=== PATIENT | male | born 1965 | race Caucasian/White ===

== ENCOUNTER 2017-07-23 21:36 | Emergency (ER) | payer BC, OTHER ==
[2017-07-23] MEDS ORDERED: Metoclopramide 10 MG/2 ML SDV IVPUSH ONE (22:09)
[2017-07-23] MEDS ORDERED: HYDROmorphone 0.5 MG/0.5 ML SYRINGE IVPUSH ONE (22:09)
--- NOTE | 2017-07-23 22:09 | EDM.PDOC ---
ED HPI GENERAL MEDICAL PROBLEM - General Chief Complaint: Gastrointestinal Problem Stated Complaint: ABDOMINAL PAIN Time Seen by Provider: 07/23/17 22:02 Source of Information: Reports: Patient History Limitations: Reports: No Limitations - History of Present Illness INITIAL COMMENTS - FREE TEXT/NARRATIVE: 52-year-old male presents the ED with a combination of Toprol. He states within a half hour eating Sahu's soup he developed diffuse periumbilical abdominal pain which she described as burning. Pain is constant with a mild colicky component. He is not passing any flatus per rectum and he feels mildly distended. Associated nausea and he has not vomited. He suddenly developed a severe headache bandlike across his forehead but centered more between the eyebrows. It is constant and throbbing in the light hurts his eyes. He does have a history of migraine headaches. States this feels similar to weighs expression the past. No previous abdominal surgery. Pain started about half hour after having the soup.ie about 1830 hrs. Onset: Today Onset Date: 07/23/17 Onset Time: 18:30 Duration: Hour(s): Location: Reports: Head ( Associated feeling of abdominal distention. severe headache centered mostly in the frontal cortex centrally throbbing pounding and associated photophobia with nausea. ), Abdomen (Diffuse periumbilical constant abdominal pain which he described as burning in intensity with some mild colicky component.) Quality: Reports: Other (Headache is throbbing and pounding.) Severity: Moderate Improves with: Reports: None Worsens with: Reports: None Context: Denies: Activity, Exercise, Lifting, Sick Contact, Trauma, Other Associated Symptoms: Reports: Headaches, Loss of Appetite (Has a history of migraine headaches), Nausea/Vomiting, Weakness (Nausea with no vomiting). 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 [No Known Home Meds] 07/23/17 [History] Past Medical History - Past Health History Medical/Surgical History: Denies Medical/Surgical History Neurological History: Reports: Migraines Social & Family History - Family History Family Medical History: Noncontributory - Tobacco Use Smoking Status *Q: Never Smoker - Caffeine Use Caffeine Use: Reports: Coffee - Recreational Drug Use Recreational Drug Use: No - Living Situation & Occupation Living situation: Reports: Occupation: Employed ED ROS GENERAL - Review of Systems Review Of Systems: See Below Constitutional: Reports: Decreased Appetite. Denies: Fever, Chills, Malaise, Weakness, Fatigue, Weight Loss HEENT: Reports: Other. Denies: Vision Change Respiratory: Reports: No Symptoms (Currently very photosensitive to light.) Cardiovascular: Reports: No Symptoms Endocrine: Reports: No Symptoms GI/Abdominal: Reports: Abdominal Pain (Diffuse periumbilical abdominal pain described as burning. Pain is constant with a), Nausea. Denies: Constipation ( mild colicky component.), Diarrhea, Vomiting (Without any emesis.) : Reports: No Symptoms Musculoskeletal: Reports: No Symptoms Skin: Reports: No Symptoms Neurological: Reports: Headache (Severe bandlike headache across his frontal cortex centered in the middle of his forehead. Constant pounding throbbing headache ). Denies: Paresthesia (similar to migraines he is expressing the past.), Pre-Existing Deficit, Seizure, Syncope, Tingling, Tremors, Trouble Speaking, Difficulty Walking, Weakness Psychiatric: Reports: No Symptoms Hematologic/Lymphatic: Reports: No Symptoms Immunologic: Reports: No Symptoms ED EXAM, GI/ABD - Physical Exam Exam: See Below Exam Limited By: No Limitations General Appearance: Alert, WD/WN, Moderate Distress (In obvious discomfort prefers to lie still with his eyes closed.) Eyes: Bilateral: Normal Appearance (No jaundice.), Proptosis (Problem with no gaze palsy.) Throat/Mouth: Normal Inspection, Normal Lips, Normal Teeth Head: Atraumatic, Normocephalic Neck: Normal Inspection, Supple, Non-Tender, Full Range of Motion. No: Lymphadenopathy (L), Lymphadenopathy (R) Respiratory/Chest: No Respiratory Distress, Lungs Clear, Normal Breath Sounds, No Accessory Muscle Use, Chest Non-Tender Cardiovascular: Normal Peripheral Pulses, Regular Rate, Rhythm, No Edema, No Gallop, No Murmur, No Rub GI/Abdominal Exam: Soft, Non-Tender, No Organomegaly, Distended (Subjectively feels distended but is not tympanitic to percussion.), Abnormal Bowel Sounds ( Hyperactive bowel sounds in all 4 quadrants.), Other (Soft patient without organomegaly or masses noted. Note he has a band of vitiligo across his lower abdomen where his waistband of his under shorts would go across.). No: Guarding , Rigid, Rebound, Tender Back Exam: Normal Inspection, Full Range of Motion. No: CVA Tenderness (L), CVA Tenderness (R) Extremities: Normal Inspection, Normal Range of Motion, Non-Tender, No Pedal Edema Neurological: Alert, Oriented, CN II-XII Intact, Normal Cognition, Normal Gait Psychiatric: Normal Affect, Normal Mood Skin Exam: Warm, Dry, Intact, Normal Color, No Rash Course - Vital Signs Last Recorded V/S: Last Vital Signs Temp 35.4 C 07/23/17 21:43 Pulse 61 07/23/17 21:43 Resp 24 H 07/23/17 21:43 BP Pulse Ox 10 L 07/23/17 21:43 - Orders/Labs/Meds Orders: Active Orders 24 hr Category Date Time Status Abdomen 1V Flat [CR] Stat Exams 07/23/17 22:10 Taken Dextrose 5%-0.9% NaCl [Dextrose 5%-Normal Saline] 1,000 Med 07/23/17 22:15 Active ml IV ASDIRECTED Medication Orders Dextrose/Sodium Chloride (Dextrose 5%-Normal Saline) 1,000 mls @ 999 mls/hr IV ASDIRECTED CHANTELL Last Admin: 07/23/17 22:18 Dose: 999 mls/hr Labs: Laboratory Tests 07/23/17 07/23/17 Range/Units 21:00 21:00 WBC 11.25 H (4.23-9.07) K/mm3 RBC 5.56 (4.63-6.08) M/mm3 Hgb 16.4 (13.7-17.5) gm/L Hct 46.6 (40.1-51.0) % MCV 83.8 (79.0-92.2) fl MCH 29.5 (25.7-32.2) pg MCHC 35.2 (32.2-35.5) g/dl RDW Std Deviation 38.3 (35.1-43.9) fL Plt Count 250 (163-337) K/mm3 MPV 9.8 (9.4-12.3) fl Neutrophils % (Manual) 90 H (40-60) % Band Neutrophils % 0 (0-10) % Lymphocytes % (Manual) 8 L (20-40) % Atypical Lymphs % 0 % Monocytes % (Manual) 2 (2-10) % Eosinophils % (Manual) 0 L (0.8-7.0) % Basophils % (Manual) 0 L (0.2-1.2) Platelet Estimate Adequate RBC Morph Comment Normal Sodium 139 (136-145) mEq/L Potassium 3.5 (3.5-5.1) mEq/L Chloride 101 (98-107) mEq/L Carbon Dioxide 24 (21-32) mEq/L Anion Gap 17.5 H (5-15) BUN 12 (7-18) mg/dL Creatinine 1.3 (0.7-1.3) mg/dL Est Cr Clr Drug Dosing 67.07 mL/min Estimated GFR (MDRD) 58 (>60) mL/min BUN/Creatinine Ratio 9.2 L (14-18) Glucose 146 H (74-106) mg/dL Calcium 9.2 (8.5-10.1) mg/dL Total Bilirubin 1.1 H (0.2-1.0) mg/dL AST 28 (15-37) U/L ALT 53 (16-63) U/L Alkaline Phosphatase 56 (46-116) U/L C-Reactive Protein < 0.2 (<1.0) mg/dL Total Protein 7.8 (6.4-8.2) g/dl Albumin 4.2 (3.4-5.0) g/dl Globulin 3.6 gm/dL Albumin/Globulin Ratio 1.2 (1-2) Amylase 63 (25-115) U/L Meds: Medications Generic Name Dose Route Start Last Admin Trade Name Freq PRN Reason Stop Dose Admin Dextrose/Sodium Chloride 1,000 mls @ 999 mls/hr 07/23/17 22:15 07/23/17 22:18 Dextrose 5%-Normal Saline IV 999 mls/hr ASDIRECTED CHANTELL Administration Discontinued Medications Generic Name Dose Route Start Last Admin Trade Name Freq PRN Reason Stop Dose Admin Hydromorphone HCl 1 mg 07/23/17 22:09 07/23/17 22:20 Dilaudid IVPUSH 07/23/17 22:10 1 mg ONETIME ONE Administration Metoclopramide HCl 10 mg 07/23/17 22:09 07/23/17 22:19 Reglan IVPUSH 07/23/17 22:10 10 mg ONETIME ONE Administration - Radiology Interpretation Free Text/Narrative:: 52-year-old male presents to the ED with acute onset of diffuse abdominal pain initially upper and now settled mostly periumbilical. He described as burning and constant with a mild colicky component. Does like he wants to vomit but has not been able to do so. Also does not feel like he is passing any flatus per rectum. Feels distended. No previous abdominal surgeries. He also developed a's severe splitting headache central frontal scalp which is throbbing and pounding. Associated with nausea. Also she with photophobia. Possibility STD exposure in the Sahu's soup as a precipitant of migraine which caused associated abdominal pain. Plan IV D5 normal saline at 999 mils per hour. Will give Reglan 10 mg IV with Dilaudid 0.5 mg IV for headache relief as well as abdominal pain relief. Routine labs including a serum aldolase and CRP will be obtained. One view of the abdomen to be obtained as well. - Re-Assessments/Exams Free Text/Narrative Re-Assessment/Exam: 07/23/17 22:54 KUB is essentially normal. There are few nonspecific dilated loops of small bowel down the right lower quadrant of the abdomen with increased stool in the cecum. Is no true signs of bowel obstruction. 07/23/17 23:08 Only chemistry is back at this time. Sodium is 139 with potassium of 3.5. Chloride is 11 with a bicarbonate 24. And a gap is mildly elevated at 17.5. BUN is 12 and a creatinine of 1.3. EGFR is greater than 58. BUN creatinine ratio is 9.2. Glucose 146. Bilirubin 1.1. Liver function otherwise normal amylase is 63 i.e. normal. White count reveals a total WBC of 11.25 with 90% neutrophils and no bands hemoglobin is 16.4 with a hematocrit of 46.6. Platelet count is 250,000. Patient feels much improved and will be discharged to home to bed. Departure - Departure Time of Disposition: 23:17 Disposition: Home, Self-Care 01 Condition: Fair Clinical Impression: Migraine headache without aura Qualifiers: Status migrainosus presence: without status migrainosus Intractability: not intractable Qualified Code(s): G43.009 - Migraine without aura, not intractable , without status migrainosus Abdominal pain Qualifiers: Abdominal location: periumbilical Qualified Code(s): R10.33 - Periumbilical pain - Discharge Information Referrals: Saleem Anderson MD [Primary Care Provider] - Forms: ED Department Discharge Additional Instructions: Evaluation the emergency room tonight in regards to development of upper and then periumbilical abdominal pain with increased bowel sounds on initial examination. Suggested intestinal colic or really bad cramps. X-ray of the abdomen shows some increased stool in the right hemicolon and a few nonspecific dilated loops of small bowel in the right lower quadrant but no other signs of chicken etc. He also developed a severe frontal headache which I would call migraine due to is associated photophobia and nausea. It may or may not be related to MSG found in Sahu's soups. They are known to often have very high concentrations of monosodium glutamate which can precipitate headaches and susceptible individuals. Migraines are often associated with upper abdominal pain as well. Often associate with paralysis of the stomach and pain. At any rate lab work proved to be essentially normal. You're treated with intravenous fluids while in the ED and given Dilaudid 1 mg and Reglan 10 mg IV for pain relief. Much improved at the time of discharge and repeat abdominal examination did not show any such evidence of peritonitis or appendicitis. Home to bed and sleep. Certainly return to the emergency room in the next 12 hours of abdominal pain is not markedly improved or returns or seems to settle in the right lower quadrant of the abdomen which would suggest developing appendicitis. - My Orders Last 24 Hours: My Active Orders 07/23/17 22:10 Abdomen 1V Flat [CR] Stat 07/23/17 22:15 Dextrose 5%-0.9% NaCl [Dextrose 5%-Normal Saline] 1,000 ml IV ASDIRECTED - Assessment/Plan Last 24 Hours: My Active Orders 07/23/17 22:10 Abdomen 1V Flat [CR] Stat 07/23/17 22:15 Dextrose 5%-0.9% NaCl [Dextrose 5%-Normal Saline] 1,000 ml IV ASDIRECTED
[2017-07-23] MEDS ORDERED: Dextrose 5%-0.9% NaCl 1,000 ML IV SCH (22:15)
--- NOTE | 2017-07-24 07:26 | CR ---
Abdomen: Supine view of the abdomen was obtained. Comparison: No prior study. Bowel gas pattern appears normal. Minimal degenerative change is noted within the spine. No abnormal calcifications or soft tissue abnormality is appreciated. Impression: 1. Incidental findings. Diagnostic code #2
== END 2017-07-23 23:25 | disposition home or self-care (01) ==
LOC: JD.ED 21:36
DX: G43.009 Migraine without aura, not intractable, without status migrainosus (principal); R10.33 Periumbilical pain
CPT/HCPCS: 36415; 74018; 80053; 82150; 85025; 86140; 96361; 96374; 96375; 99284; J1170; J2765; J7042

== ENCOUNTER 2017-12-05 01:17 | Observation (INO) | payer OTHER ==
[2017-12-05] MEDS ORDERED: Alum Hydrox/Mag Hydrox/Simeth 30 ML, Lidocaine 2% 15 ML PO ONE ×2 (01:43)
[2017-12-05] MEDS ORDERED: Sodium Chloride 0.9% 1,000 ML IV SCH (01:45)
[2017-12-05] MEDS ORDERED: Ketorolac 30 MG/ML SDV IVPUSH ONE (02:10)
[2017-12-05] MEDS ORDERED: Dicyclomine 20 MG/2 ML SDV IM ONE (02:10)
[2017-12-05] MEDS ORDERED: Ondansetron 4 MG/2 ML SDV IVPUSH ONE (02:11)
[2017-12-05] MEDS ORDERED: Iopamidol 755 Mg/ML 100 ML Bottle IVPUSH ONE (03:09)
[2017-12-05] MEDS ORDERED: Diatrizoate Meglumine/Diatrizoate Sodium 37% 120 ML Bottle PO ONE (03:09)
--- NOTE | 2017-12-05 04:29 | EDM.PDOC ---
ED HPI GENERAL MEDICAL PROBLEM - General Chief Complaint: Abdominal Pain Stated Complaint: ABDOMINAL PAIN Time Seen by Provider: 12/05/17 01:39 Source of Information: Reports: Patient, Family History Limitations: Reports: No Limitations - History of Present Illness INITIAL COMMENTS - FREE TEXT/NARRATIVE: Patient is a 52-year-old male presents emergency Department epigastric and upper abdominal pain. He describes the pain as a severe burning type pain. He denies any particular trigger. Patient a bowel movement prior to arrival but it did not change the characteristics of his pain. He describes the pain as intermittent +8 out of 10. Patient denies any previous history of gallbladder disease or abdominal surgeries. Patient reports nausea with dry heaves and epigastric pain upper abdominal pain, diaphoresis, patient denies any fever chills constipation or diarrhea no new rashes itches or joint pains. Onset: Sudden Duration: Hour(s): (4), Colic, Getting Worse, Intermittent Location: Reports: Abdomen Quality: Reports: Burning Severity: Severe Improves with: Reports: None Worsens with: Reports: None Context: Reports: Other (see hpi) Associated Symptoms: Reports: Chest Pain, Diaphoresis, Nausea/Vomiting, Shortness of Breath. Denies: Fever/Chills Epigastric Pain Score (Numeric/FACES): 10 - Related Data Allergies Allergy/AdvReac Type Severity Reaction Status Date / Time No Known Allergies Allergy Verified 07/23/17 21:43 Home Meds: Home Meds . [No Known Home Meds] 07/23/17 [History] Past Medical History - Past Health History Medical/Surgical History: Denies Medical/Surgical History Cardiovascular History: Reports: Hypertension Neurological History: Reports: Migraines Social & Family History - Family History Family Medical History: Noncontributory - Tobacco Use Smoking Status *Q: Never Smoker - Caffeine Use Caffeine Use: Reports: Coffee - Living Situation & Occupation Living situation: Reports: Occupation: Employed ED ROS GENERAL - Review of Systems Review Of Systems: See Below Constitutional: Reports: No Symptoms HEENT: Reports: No Symptoms Respiratory: Reports: Shortness of Breath Cardiovascular: Reports: Chest Pain Endocrine: Reports: No Symptoms GI/Abdominal: Reports: Abdominal Pain, Nausea, Vomiting (Dry heaves). Denies: Black Stool, Bloody Stool, Constipation, Diarrhea : Reports: No Symptoms Musculoskeletal: Reports: No Symptoms Skin: Reports: No Symptoms Neurological: Reports: No Symptoms Psychiatric: Reports: No Symptoms Hematologic/Lymphatic: Reports: No Symptoms Immunologic: Reports: No Symptoms ED EXAM, GI/ABD - Physical Exam Exam: See Below Exam Limited By: No Limitations General Appearance: Alert, WD/WN, Moderate Distress Eyes: Bilateral: Normal Appearance, EOMI Ears: Normal External Exam, Normal Canal, Hearing Grossly Normal, Normal TMs Nose: Normal Inspection, Normal Mucosa, No Blood Throat/Mouth: Normal Inspection, Normal Lips, Normal Oropharynx, Normal Voice, No Airway Compromise Head: Atraumatic, Normocephalic Neck: Normal Inspection, Supple, Non-Tender, Full Range of Motion Respiratory/Chest: No Respiratory Distress, Lungs Clear, Normal Breath Sounds, No Accessory Muscle Use, Chest Non-Tender Cardiovascular: Normal Peripheral Pulses, Regular Rate, Rhythm, No Edema, No JVD , No Murmur GI/Abdominal Exam: Normal Bowel Sounds, Soft, No Organomegaly, No Distention, No Abnormal Bruit, No Mass, Pelvis Stable, Tender, Abnormal Bowel Sounds ( Decreased bowel sounds). No: Distended, Guarding, Rigid, Rebound Back Exam: Normal Inspection, Full Range of Motion. No: CVA Tenderness (L), CVA Tenderness (R) Neurological: Alert, Oriented, CN II-XII Intact, Normal Cognition Psychiatric: Normal Affect, Normal Mood Skin Exam: Warm, Dry, Intact, Normal Color, No Rash Lymphatic: No Adenopathy Course - Vital Signs Last Recorded V/S: Last Vital Signs Temp 98.5 F 12/05/17 01:26 Pulse 98 12/05/17 01:26 Resp 18 12/05/17 01:26 BP 175/97 H 12/05/17 01:26 Pulse Ox 100 12/05/17 01:26 - Orders/Labs/Meds Orders: Active Orders 24 hr Category Date Time Status EKG Documentation Completion [RC] ASDIRECTED Care 12/05/17 01:53 Active Abdomen Ltd [US] Stat Exams 12/05/17 03:35 Taken Abdomen Pelvis w Cont [CT] Stat Exams 12/05/17 01:41 Taken Chest 1V Frontal [CR] Stat Exams 12/05/17 01:40 Taken Sodium Chloride 0.9% [Normal Saline] 1,000 ml Med 12/05/17 01:45 Active IV ASDIRECTED EKG 12 Lead [EK] Stat Ther 12/05/17 01:53 Ordered Medication Orders Sodium Chloride (Normal Saline) 1,000 mls @ 150 mls/hr IV ASDIRECTED CHANTELL Last Admin: 12/05/17 01:49 Dose: 150 mls/hr Labs: Laboratory Tests 12/05/17 12/05/17 12/05/17 Range/Units 01:36 01:36 01:36 WBC 10.45 H (4.23-9.07) K/mm3 RBC 5.20 (4.63-6.08) M/mm3 Hgb 15.7 (13.7-17.5) gm/L Hct 44.8 (40.1-51.0) % MCV 86.2 (79.0-92.2) fl MCH 30.2 (25.7-32.2) pg MCHC 35.0 (32.2-35.5) g/dl RDW Std Deviation 40.1 (35.1-43.9) fL Plt Count 211 (163-337) K/mm3 MPV 9.9 (9.4-12.3) fl Neut % (Auto) 76.8 H (34.0-67.9) % Lymph % (Auto) 13.5 L (21.8-53.1) % [place] % (Auto) 7.2 (5.3-12.2) % Eos % (Auto) 1.8 (0.8-7.0) Baso % (Auto) 0.4 (0.1-1.2) % Neut # (Auto) 8.03 H (1.78-5.38) K/mm3 Lymph # (Auto) 1.41 (1.32-3.57) K/mm3 [place] # (Auto) 0.75 (0.30-0.82) K/mm3 Eos # (Auto) 0.19 (0.04-0.54) K/mm3 Baso # (Auto) 0.04 (0.01-0.08) K/mm3 Sodium 138 (136-145) mEq/L Potassium 3.8 (3.5-5.1) mEq/L Chloride 104 (98-107) mEq/L Carbon Dioxide 24 (21-32) mEq/L Anion Gap 13.8 (5-15) BUN 21 H (7-18) mg/dL Creatinine 1.4 H (0.7-1.3) mg/dL Est Cr Clr Drug Dosing 62.28 mL/min Estimated GFR (MDRD) 53 (>60) mL/min BUN/Creatinine Ratio 15.0 (14-18) Glucose 142 H (74-106) mg/dL Lactic Acid 2.3 H (0.4-2.0) mmol/L Calcium 8.8 (8.5-10.1) mg/dL Total Bilirubin 1.0 (0.2-1.0) mg/dL AST 18 (15-37) U/L ALT 43 (16-63) U/L Alkaline Phosphatase 52 (46-116) U/L Troponin I < 0.017 (0.00-0.056) ng/mL Total Protein 7.5 (6.4-8.2) g/dl Albumin 3.9 (3.4-5.0) g/dl Globulin 3.6 gm/dL Albumin/Globulin Ratio 1.1 (1-2) Lipase (73-393) U/L 12/05/17 Range/Units 01:36 WBC (4.23-9.07) K/mm3 RBC (4.63-6.08) M/mm3 Hgb (13.7-17.5) gm/L Hct (40.1-51.0) % MCV (79.0-92.2) fl MCH (25.7-32.2) pg MCHC (32.2-35.5) g/dl RDW Std Deviation (35.1-43.9) fL Plt Count (163-337) K/mm3 MPV (9.4-12.3) fl Neut % (Auto) (34.0-67.9) % Lymph % (Auto) (21.8-53.1) % [place] % (Auto) (5.3-12.2) % Eos % (Auto) (0.8-7.0) Baso % (Auto) (0.1-1.2) % Neut # (Auto) (1.78-5.38) K/mm3 Lymph # (Auto) (1.32-3.57) K/mm3 [place] # (Auto) (0.30-0.82) K/mm3 Eos # (Auto) (0.04-0.54) K/mm3 Baso # (Auto) (0.01-0.08) K/mm3 Sodium (136-145) mEq/L Potassium (3.5-5.1) mEq/L Chloride (98-107) mEq/L Carbon Dioxide (21-32) mEq/L Anion Gap (5-15) BUN (7-18) mg/dL Creatinine (0.7-1.3) mg/dL Est Cr Clr Drug Dosing mL/min Estimated GFR (MDRD) (>60) mL/min BUN/Creatinine Ratio (14-18) Glucose (74-106) mg/dL Lactic Acid (0.4-2.0) mmol/L Calcium (8.5-10.1) mg/dL Total Bilirubin (0.2-1.0) mg/dL AST (15-37) U/L ALT (16-63) U/L Alkaline Phosphatase (46-116) U/L Troponin I (0.00-0.056) ng/mL Total Protein (6.4-8.2) g/dl Albumin (3.4-5.0) g/dl Globulin gm/dL Albumin/Globulin Ratio (1-2) Lipase 120 (73-393) U/L Meds: Medications Generic Name Dose Route Start Last Admin Trade Name Freq PRN Reason Stop Dose Admin Sodium Chloride 1,000 mls @ 150 mls/hr 12/05/17 01:45 12/05/17 01:49 Normal Saline IV 150 mls/hr ASDIRECTED CHANTELL Administration Discontinued Medications Generic Name Dose Route Start Last Admin Trade Name Freq PRN Reason Stop Dose Admin Al Hydroxide/Mg Hydroxide 30 0 ml 12/05/17 01:43 12/05/17 01:50 ml/ Lidocaine HCl 15 ml PO 12/05/17 01:44 45 ml ONETIME ONE Administration Diatrizoate Meglum/Diatrizoate Sod 90 ml 12/05/17 03:09 12/05/17 03:17 Gastrografin 37% PO 12/05/17 03:10 90 ml ONETIME ONE Administration Dicyclomine HCl 20 mg 12/05/17 02:10 12/05/17 02:19 Bentyl IM 12/05/17 02:11 20 mg ONETIME ONE Administration Iopamidol 100 ml 12/05/17 03:09 07/18/18 03:17 [id number] (76%) IVPUSH 12/05/17 03:10 100 ml ONETIME ONE Administration Ketorolac Tromethamine 30 mg 12/05/17 02:10 12/05/17 02:18 Toradol IVPUSH 12/05/17 02:11 30 mg ONETIME ONE Administration Ondansetron HCl 4 mg 12/05/17 02:11 12/05/17 02:15 Zofran IVPUSH 12/05/17 02:12 4 mg ONETIME ONE Administration - Radiology Interpretation Free Text/Narrative:: Patient had a limited ultrasound of the abdomen right upper quadrant epigastric pain the impression is cholelithiasis. No ultrasound evidence of acute cholecystitis. Gallbladder wall upper limits of normal in thickness. Patient had a CT of the abdomen and pelvis and the impression was by the red: Nonspecific gallbladder wall thickening this could be better evaluated by an ultrasound. Patient had a EKG at 1:36 AM Rate 68 sinus rhythm NV interval 153 QTC 430 Lead 3 has inverted T waves otherwise normal EKG - Re-Assessments/Exams Free Text/Narrative Re-Assessment/Exam: 12/05/17 04:39 Care of this patient was discussed in great detail with the surgeon Dr. Lois WU. Patient had a slight elevation in his white blood cell count of 10.45 elevation lactic acid 2.3 but a negative ultrasound but a positive gallbladder wall thickening on his CT. Patient has no other medical problems. Dr. Chao accepts the patient for observation. She will be in to see the patient in to see patient around 8 AM. Patient is still having intermittent abdominal pain but he states it is somewhat tolerable. We'll continue to monitor. Departure - Departure Time of Disposition: 04:20 Disposition: DC/Tfer to Critical Access 66 Condition: Good Clinical Impression: Cholelithiasis NOS Qualifiers: Cholelithiasis location: gallbladder Cholecystitis presence: without cholecystitis Biliary obstruction: without biliary obstruction Qualified Code(s) : K80.20 - Calculus of gallbladder without cholecystitis without obstruction - Discharge Information *PRESCRIPTION DRUG MONITORING PROGRAM REVIEWED*: Not Applicable *COPY OF PRESCRIPTION DRUG MONITORING REPORT IN PATIENT YOLANDA: Not Applicable Instructions: Cholelithiasis Referrals: PCP,Not In Area [Primary Care Provider] - Forms: ED Department Discharge - My Orders Last 24 Hours: My Active Orders 12/05/17 01:40 Chest 1V Frontal [CR] Stat 12/05/17 01:41 Abdomen Pelvis w Cont [CT] Stat 12/05/17 01:45 Sodium Chloride 0.9% [Normal Saline] 1,000 ml IV ASDIRECTED 12/05/17 01:53 EKG Documentation Completion [RC] ASDIRECTED EKG 12 Lead [EK] Stat 12/05/17 03:35 Abdomen Ltd [US] Stat - Assessment/Plan Last 24 Hours: My Active Orders 12/05/17 01:40 Chest 1V Frontal [CR] Stat 12/05/17 01:41 Abdomen Pelvis w Cont [CT] Stat 12/05/17 01:45 Sodium Chloride 0.9% [Normal Saline] 1,000 ml IV ASDIRECTED 12/05/17 01:53 EKG Documentation Completion [RC] ASDIRECTED EKG 12 Lead [EK] Stat 12/05/17 03:35 Abdomen Ltd [US] Stat
--- NOTE | 2017-12-05 10:14 | CT ---
CT abdomen and pelvis Technique: Multiple axial sections were obtained from above the dome of the diaphragm inferiorly through the pubic symphysis. Intravenous and oral contrast was utilized. Delayed images were also obtained through the bladder. Comparison: No prior abdominal imaging is available. Findings: Slight dependent atelectasis is seen posteriorly within both lung bases which is incidental. Liver shows no focal parenchymal abnormality. Gallbladder contains no calcified gallstones. Spleen appears within normal limits. Adrenal glands show no nodule. Several small cortical cysts are seen within both kidneys. Parapelvic cysts are noted within the left kidney. No discrete solid abnormality is seen within the right or left kidneys. Pancreas is within normal limits. Aorta shows no aneurysmal dilatation. No retroperitoneal adenopathy is seen. Appendix is seen which is normal. No pelvic mass or adenopathy is seen. Delayed images show contrast within the distal ureters and within the bladder. Incidental calcifications are noted within a mildly enlarged prostate gland. Minimal diverticuli seen within the descending and sigmoid colon without inflammatory change of diverticulitis. Bone window settings were reviewed which show disc space narrowing at L5-S1 with vacuum phenomena. 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 Other scattered degenerative endplate spurring is noted within the spine. Impression: 1. Incidental findings. Nothing acute is seen on CT study of the abdomen and pelvis. Diagnostic code #2 I agree with preliminary report issued by [facility] ([facility] report finalized on 12/05/17, 4:25 AM Central Time)
--- NOTE | 2017-12-05 10:14 | CR ---
Chest: Portable view of the chest was obtained. Comparison: Prior chest x-ray of 08/22/12. Heart size is normal. Tortuous thoracic aorta is seen. Lungs are clear without acute parenchymal change. Bony structures are grossly intact. Impression: 1. Nothing acute is seen on portable chest x-ray. Diagnostic code #1
--- NOTE | 2017-12-05 10:14 | US ---
Limited abdominal ultrasound: Multiple real-time images of the upper right abdomen were obtained. Comparison: Prior CT exam performed earlier on the same day (3:03 AM). Visualized portions of liver show no discrete abnormality. Gallbladder contains several gallstones but no gallbladder wall thickening is seen. CHD and CBD are obscured from bowel gas. No indirect evidence of biliary duct dilatation is seen. Right kidney shows no hydronephrosis or mass. Right kidney has a length of 11.6 cm. Pancreas is mostly obscured by bowel gas. Portal vein shows normal hepatopedal flow. Impression: 1. No gallbladder wall thickening is seen. Several gallstones are noted. 2. Nonvisualized CHD and CBD but no indirect evidence of biliary duct dilatation is seen. 3. No additional abnormality is seen on somewhat limited abdominal ultrasound. Diagnostic code #3 I agree with preliminary report issued by [employer] [facility] ([facility] report finalized on 12/05/17, 5:14 AM Central Time)
--- NOTE | 2017-12-05 13:02 | HP ---
DATE OF ADMISSION: 12/05/2017 CHIEF COMPLAINT: Abdominal pain. BRIEF HISTORY: Mr. Ilir Shoemaker is a very pleasant 52-year-old male who was seen in the emergency department in the early hours. He is otherwise a very healthy male and he had dinner last night at 6 o'clock, which he had no problems. At 09:15 to 09:30 p.m., he started having some abdominal pain. He describes it as epigastric and going to the right and the left with radiation more to the left shoulder. He stated he had some nausea with this and felt really bloated and distended and even any taking a deep breath would make severe, he was short of breath. He started writhing in this pain and subsequently had to be seen here in the emergency department. He did have a bowel movement during this and he said that did not help and he also tried to take some Coca-Cola and that did not help. Prior to this, he has no history of food intolerances. He has no history of any abdominal pain on a chronic basis, not taking TUMS or Rolaids. Of note, in July, he had a similar episode for which he was evaluated. At that point, there was a concern he had acute appendicitis and very similar to this pain, the pain completely went away with no residual. He has had no weight loss or gain. He has no history of night sweats. As stated above, he has no history of food intolerances. This is confirmed by the pain that was intermittent and colicky and then completely went away with just some IV pain medicines gone and he says, "As soon as I kind a relax," he says, "it goes away." During this hospitalization, the patient did have an EKG, which was really nonspecific. He had a WBC, was a 10,000. H and H were 15 and 47. His platelet count was 211. He had some chemistries, which were normal. His lactic acid was 2.3, which is just mildly elevated, but interestingly enough, his troponin was normal and his bilirubin and all his liver functions were normal. Over the course of his ED, he had a CT scan of his abdomen and pelvis, which said "nonspecific gallbladder thickening," but again nothing specific in the ultrasound, there was normal thickness with no signs of acute cholecystitis. Here the patient is totally pain-free and hungry. In going back, his UA was also negative. In looking back, his previous ED evaluation was done in July of this time and at that point, he had a KUB which was just benign in appearance. PAST MEDICAL HISTORY: Allergies none. Current medications none. PAST SURGICAL HISTORY: He had back surgery in 2003. SOCIAL HISTORY: Smoking negative. Alcohol very rare. His children are alive and well. He has 7 brothers and sisters, alive and well. Mother and father are both , one was of some cardiac disease. 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 REVIEW OF SYSTEMS: No history of seizures or strokes. No blurred or double vision. No difficulty swallowing. No history of other shortness of breath or cough. No history of chest tightness or palpitations. GI see HPI. No history of hematuria or dysuria. No history of difficulty in his bowel habits. No joint pain or tenderness. No ankle swelling or edema. PHYSICAL EXAMINATION: NEUROLOGIC: GCS is 15. HEENT: Pupils are equal. Sclerae are white. NECK: Without masses. LUNGS: Clear. HEART: Rhythm is regular. ABDOMEN: Totally soft, nontender. No guarding. No rebound. EXTREMITIES: Ankles are free of edema. LABORATORY DATA: Have been reviewed as I stated above, as well as a CT scan. IMPRESSION/PLAN: It is interesting to know that when I review the CT scan, there does appear to be that he has a septate in his gallbladder itself and even though the ultrasound does not show, I am waiting for the official report on the ultrasound because to see if they discuss this. While the verbal report says no signs of really acute problems. My suspicion is that this is biliary colic, in view of the nature of the severity of it and perhaps there is a tiny stone or he could even have like a volvulus of the gallbladder, which is a little odd, but certainly, in fact that in between these episodes, he has absolutely no pain and there is no relationship to food. I suspect that this possibly could be the cause. I explained to the patient that this is removing his gallbladder, I would only say about 98%, what I feel comfortable stating that his pain would go away just because this is really a straightforward biliary colic history and physical. So what I have done is I have provided him a card and we are going to have him come back and see me in a month, or if the symptoms come back, he is going to come back and I think a reasonable approach would be to remove the gallbladder to see if this alleviates his discomfort especially because of the problems that I see with the anatomy of the gallbladder in itself. He and his feel quite good about that approach. They obviously live here and I gave them my card and indeed this would be 1 way to go ahead and see if we can improve his lifestyle. ADITI /[id number]
== END 2017-12-05 10:30 | disposition home or self-care (01) ==
LOC: JD.ED 01:17 → JD.MS 05:08
PROVIDERS: ADMIT Surgery; ATTEND Surgery
DX: R10.13 Epigastric pain (principal); I10 Essential (primary) hypertension
CPT/HCPCS: 36415; 71045; 74177; 76705; 80053; 81001; 83605; 83690; 84484; 85025; 93005; 96361; 96372; 96374; 96375; 99285; A9270; G0378; J0500; J1885; J2405; J7040; Q9963; Q9967

== ENCOUNTER 2017-12-08 21:13 | Emergency (ER) | payer OTHER ==
[2017-12-08] MEDS ORDERED: Metoclopramide 10 MG/2 ML SDV IVPUSH ONE (21:37)
[2017-12-08] MEDS ORDERED: HYDROmorphone 0.5 MG/0.5 ML SYRINGE IVPUSH ONE (21:37)
[2017-12-08] MEDS ORDERED: Hyoscyamine 0.125 MG Tab.SL SL ONE ×2 (21:38→22:38)
--- NOTE | 2017-12-08 21:39 | EDM.PDOC ---
ED HPI GENERAL MEDICAL PROBLEM - General Chief Complaint: Abdominal Pain Stated Complaint: ABDOMINAL PAIN Time Seen by Provider: 12/08/17 21:33 Source of Information: Reports: Patient History Limitations: Reports: No Limitations - History of Present Illness INITIAL COMMENTS - FREE TEXT/NARRATIVE: 52-year-old male presents to the ED with acute onset of severe epigastric right upper quadrant abdominal pain. Radiates along the right costal margin anteriorly but not into his back. Associated nausea but no vomiting as of yet. Patient was recently diagnosed with cholelithiasis by ultrasound December 04 and by history has been having recurrent intermittent bouts of upper abdominal pain. He was hospitalized 3 days ago for similar complaint but seemed to settle down quite well and therefore was discharged to home. He had pizza for supper tonight and within the hour is experiencing abdominal pain. Patient did have 1 loose diarrhea stool earlier this afternoon. States color is normal. His had no previous abdominal surgery. He is scheduled to see a Dr. Anderson in the next 2 days about having his gallbladder removed. Onset: Today Onset Date: 12/08/17 Onset Time: 20:00 Duration: Minutes: Location: Reports: Abdomen (Epigastrium and right upper quadrant of the abdomen. ) Quality: Reports: Ache, Other Severity: Severe (Pain is described as constant with a colicky component. Rates it 10 out of 10) Improves with: Reports: None Worsens with: Reports: None (No position is comfortable.) Context: Denies: Activity, Exercise, Lifting, Sick Contact, Trauma, Other Associated Symptoms: Reports: No Other Symptoms, Loss of Appetite, Nausea/ Vomiting, Shortness of Breath (Nausea without vomiting). 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: Other (see below) (None.) Right Upper Abdomen Pain Score (Numeric/FACES): 9 - Related Data Allergies Allergy/AdvReac Type Severity Reaction Status Date / Time No Known Allergies Allergy Verified 12/08/17 21:33 Home Meds: Home Meds Hyoscyamine Sulfate [Levsin-Sl] 0.125 mg SL ASDIRECTED PRN #6 tab.subl 12/08/17 [Rx] Past Medical History - Past Health History Medical/Surgical History: Denies Medical/Surgical History Cardiovascular History: Reports: Hypertension Gastrointestinal History: Reports: Cholelithiasis (For by ultrasound a few days ago.) Neurological History: Reports: Migraines Social & Family History - Family History Family Medical History: Noncontributory - Caffeine Use Caffeine Use: Reports: None - Living Situation & Occupation Living situation: Reports: Occupation: Employed ED ROS GENERAL - Review of Systems Review Of Systems: See Below Constitutional: Denies: Fever, Chills, Malaise, Weakness, Decreased Appetite HEENT: Reports: No Symptoms Respiratory: Reports: Shortness of Breath. Denies: Wheezing, Pleuritic Chest Pain (Deep breathing makes the abdominal pain worse.), Cough, Sputum Cardiovascular: Reports: No Symptoms Endocrine: Reports: No Symptoms GI/Abdominal: Reports: Abdominal Pain (Current bouts of severe epigastric right upper quadrant abdominal pain, with biliary colic. Recently confirmed to have numerous stones in his gallbladder. It'll see a surgeon next week for definitive management.), Diarrhea, Nausea. Denies: Constipation, Vomiting : Reports: No Symptoms Musculoskeletal: Reports: No Symptoms Skin: Reports: No Symptoms Neurological: Reports: No Symptoms Psychiatric: Reports: No Symptoms Hematologic/Lymphatic: Reports: No Symptoms ED EXAM, GI/ABD - Physical Exam Exam: See Below Exam Limited By: No Limitations General Appearance: Alert, WD/WN, Moderate Distress Eyes: Bilateral: Normal Appearance Throat/Mouth: Normal Inspection, Normal Lips, Normal Teeth, Normal Oropharynx Head: Atraumatic, Normocephalic Neck: Normal Inspection, Supple, Non-Tender, Full Range of Motion. No: Lymphadenopathy (L), Lymphadenopathy (R) Respiratory/Chest: Lungs Clear, Normal Breath Sounds, No Accessory Muscle Use, Respiratory Distress (Tachypnea due to) Cardiovascular: Normal Peripheral Pulses, Regular Rate, Rhythm, No Edema, No Murmur GI/Abdominal Exam: Guarding, Tender (Very tender palpation epigastrium and right upper quadrant of the abdomen with positive Langford sign.), Abnormal Bowel Sounds (Very quiet sent bowel sounds in all 4 quadrants.), Other (No surgical scars.). No: Rigid, Rebound (Male) Exam: No Hernia Back Exam: Normal Inspection, Full Range of Motion, CVA Tenderness (R). No: CVA Tenderness (L) Extremities: Normal Inspection, Normal Range of Motion (Mildly positive), Non- Tender, No Pedal Edema Neurological: Alert, Oriented, CN II-XII Intact, Normal Cognition, Normal Gait Psychiatric: Normal Affect, Other Skin Exam: Warm, Dry, Intact, Normal Color, No Rash Course - Vital Signs Text/Narrative:: 52-year-old male presents the ED once again with acute onset of upper abdominal pain epigastric right upper quadrant. This occurred after eating pizza about 7: 00 tonight. Patient has been recently diagnosed with colon in the sciatic high doses. He spent a day in the hospital this week due to right upper quadrant abdominal pain. His temperature settled white count settled and therefore he was discharged home. He is scheduled to see a Dr. Anderson next week with plan to pursue laparoscopic cholecystectomy. He denies any fever or chills. His appetite had returned to normal. He had did have one loose stool about 4:00 this afternoon. Stools normal in color. Emanation reveals marked pain in epigastrium and along the right costal margin with a positive Langford's sign to both biliary colic. Plan Levsin 0.125 mg sublingual. IV will be normal saline 150 mils per hour. Will be given Dilaudid 1 mg IV with Reglan 10 mg IV and Toradol 30 mg IV for acute pain relief. Labs to be done to include serum amylase and make sure that he does not have any biliary tree obstruction. Last Recorded V/S: Last Vital Signs Temp 36.3 C 12/08/17 21:29 Pulse 66 12/08/17 21:29 Resp 16 12/08/17 21:29 BP 180/112 H 12/08/17 21:29 Pulse Ox 98 12/08/17 21:29 - Orders/Labs/Meds Orders: Active Orders 24 hr Category Date Time Status Ketorolac [Toradol] Med 12/08/17 21:45 Active 30 mg IVPUSH ONETIME Sodium Chloride 0.9% [Normal Saline] 1,000 ml Med 12/08/17 21:45 Active IV ASDIRECTED Medication Orders Sodium Chloride (Normal Saline) 1,000 mls @ 150 mls/hr IV ASDIRECTED CHANTELL Last Admin: 12/08/17 22:03 Dose: 150 mls/hr Ketorolac Tromethamine (Toradol) 30 mg IVPUSH ONETIME [facility] Last Admin: 12/08/17 22:04 Dose: 30 mg Labs: Laboratory Tests 12/08/17 12/08/17 Range/Units 21:52 21:52 WBC 11.14 H (4.23-9.07) K/mm3 RBC 5.51 (4.63-6.08) M/mm3 Hgb 16.3 (13.7-17.5) gm/L Hct 47.3 (40.1-51.0) % MCV 85.8 (79.0-92.2) fl MCH 29.6 (25.7-32.2) pg MCHC 34.5 (32.2-35.5) g/dl RDW Std Deviation 40.3 (35.1-43.9) fL Plt Count 250 (163-337) K/mm3 MPV 10.2 (9.4-12.3) fl Neutrophils % (Manual) 69 H (40-60) % Band Neutrophils % 0 (0-10) % Lymphocytes % (Manual) 29 (20-40) % Atypical Lymphs % 0 % Monocytes % (Manual) 1 L (2-10) % Eosinophils % (Manual) 1 (0.8-7.0) % Basophils % (Manual) 0 L (0.2-1.2) Platelet Estimate Adequate RBC Morph Comment Normal Sodium 140 (136-145) mEq/L Potassium 3.6 (3.5-5.1) mEq/L Chloride 104 (98-107) mEq/L Carbon Dioxide 21 (21-32) mEq/L Anion Gap 18.6 H (5-15) BUN 19 H (7-18) mg/dL Creatinine 1.4 H (0.7-1.3) mg/dL Est Cr Clr Drug Dosing 62.28 mL/min Estimated GFR (MDRD) 53 (>60) mL/min BUN/Creatinine Ratio 13.6 L (14-18) Glucose 148 H (74-106) mg/dL Calcium 9.1 (8.5-10.1) mg/dL Total Bilirubin 0.9 (0.2-1.0) mg/dL AST 19 (15-37) U/L ALT 37 (16-63) U/L Alkaline Phosphatase 62 (46-116) U/L C-Reactive Protein 1.9 H* (<1.0) mg/dL Total Protein 7.8 (6.4-8.2) g/dl Albumin 3.9 (3.4-5.0) g/dl Globulin 3.9 gm/dL Albumin/Globulin Ratio 1.0 (1-2) Amylase 70 (25-115) U/L Meds: Medications Generic Name Dose Route Start Last Admin Trade Name Freq PRN Reason Stop Dose Admin Sodium Chloride 1,000 mls @ 150 mls/hr 12/08/17 21:45 12/08/17 22:03 Normal Saline IV 150 mls/hr ASDIRECTED CHANTELL Administration Ketorolac Tromethamine 30 mg 12/08/17 21:45 12/08/17 22:04 Toradol IVPUSH 30 mg ONETIME CHANTELL Administration Discontinued Medications Generic Name Dose Route Start Last Admin Trade Name Freq PRN Reason Stop Dose Admin Hydromorphone HCl 1 mg 12/08/17 21:37 12/08/17 22:04 Dilaudid IVPUSH 12/08/17 21:38 1 mg ONETIME ONE Administration Hyoscyamine 0.125 mg 12/08/17 21:38 12/08/17 22:04 Hyomax-Sl SL 12/08/17 21:39 0.125 mg ONETIME ONE Administration Hyoscyamine 0.125 mg 12/08/17 22:38 Hyomax-Sl SL 12/08/17 22:39 ONETIME ONE Metoclopramide HCl 10 mg 12/08/17 21:37 12/08/17 22:04 Reglan IVPUSH 12/08/17 21:38 10 mg ONETIME ONE Administration - Radiology Interpretation Free Text/Narrative:: 52-year-old male presents to the ED once again with a severe gallbladder attack. This occurred after eating pizza. He was diagnosed with cholelithiasis on December 04 by ultrasound at which time he was expressing a gallbladder attack as well. He arrives in obvious significant discomfort. Plan will be IV normal saline at 150 mils per hour. Given Dilaudid 1 mg IV with Reglan 10 mg IV and Toradol 30 mg IV for pain relief. Routine labs to be collected to include an amylase. - Re-Assessments/Exams Free Text/Narrative Re-Assessment/Exam: 12/08/17 22:32 he reports he is completely pain-free at this time. Feels pretty well back to normal other than mild discomfort right upper quadrant of the abdomen. 12/08/17 22:34 Labs are back revealing an elevated white count of 11.14. Hemoglobin is 16.3 with hematocrit of 47.3. Neutrophils are 69% with no bands. Platelets are 250,000. Sodium is 140 with potassium of 3.6. Chloride 104 bicarbonate 21. Anion gap is elevated at 18.6. B1 is 19. Creatinine is 1.4. Glucose is 148. Calcium is 9.1. Total bilirubin is 0.9. AST is 19 ALT is 37. Alk phosphatase 62. C-reactive protein 1.9. Amylase is 70 normal. Departure - Departure Time of Disposition: 22:34 Disposition: Home, Self-Care 01 Condition: Fair Clinical Impression: Recurrent biliary colic Cholelithiasis NOS Qualifiers: Cholelithiasis location: gallbladder Cholecystitis presence: without cholecystitis Biliary obstruction: without biliary obstruction Qualified Code(s) : K80.20 - Calculus of gallbladder without cholecystitis without obstruction - Discharge Information *PRESCRIPTION DRUG MONITORING PROGRAM REVIEWED*: Not Applicable *COPY OF PRESCRIPTION DRUG MONITORING REPORT IN PATIENT YOLANDA: Not Applicable Prescriptions: Hyoscyamine Sulfate [Levsin-Sl] 0.125 mg SL ASDIRECTED PRN #6 tab.subl PRN Reason: biliary colic Instructions: Cholelithiasis, Cholelithiasis, [id number], Gallbladder Eating Plan Referrals: Saleem Anderson MD [Primary Care Provider] - Forms: ED Department Discharge Additional Instructions: Evaluation the emergency room today in regards to recurrent bout of biliary colic or gallbladder attack. This occurred after eating pizza tonight. Is one of the foods that on the list not to eat when you have a bad gallbladder. You' re treated with intravenous pain medication Dilaudid 1 mg and Reglan 10 mg IV for nausea relief and Toradol 39 g IV for pain relief. Labs checked out okay with no signs of stone in the common bile duct at this time. I will send you home with 2 tablets of Levsin easily to be taken at onset of similar type pain in case it comes back tonight take 1 and if not markedly improved in 5-10 minutes take the second one. Prescription for similar type medication will be sent home with you as well. Of course follow-up with the surgeon as planned this week with a view to getting her gallbladder removed to prevent future attacks. - My Orders Last 24 Hours: My Active Orders 12/08/17 21:45 Ketorolac [Toradol] 30 mg IVPUSH ONETIME Sodium Chloride 0.9% [Normal Saline] 1,000 ml IV ASDIRECTED - Assessment/Plan Last 24 Hours: My Active Orders 12/08/17 21:45 Ketorolac [Toradol] 30 mg IVPUSH ONETIME Sodium Chloride 0.9% [Normal Saline] 1,000 ml IV ASDIRECTED
[2017-12-08] MEDS ORDERED: Ketorolac 30 MG/ML SDV IVPUSH SCH (21:45)
[2017-12-08] MEDS ORDERED: Sodium Chloride 0.9% 1,000 ML IV SCH (21:45)
== END 2017-12-08 22:55 | disposition home or self-care (01) ==
LOC: JD.ED 21:13
DX: K80.50 Calculus of bile duct without cholangitis or cholecystitis without obstruction (principal); K80.20 Calculus of gallbladder without cholecystitis without obstruction; I10 Essential (primary) hypertension
CPT/HCPCS: 36415; 80053; 82150; 85007; 85027; 86140; 96361; 96374; 96375; 99284; A9270; J1170; J1885; J2765; J7040

== ENCOUNTER 2023-06-14 17:14 | Emergency (ER) | payer BC ==
[2023-06-14] MEDS ORDERED: Sodium Chloride 0.9% 10 ML Syringe FLUSH PRN (17:31)
[2023-06-14 18:17] LABS: BASOPHILS ABSOLUTE AUTO 0.1 K/mm3 (0.0-0.2); EOSINOPHILS ABSOLUTE AUTO 0.4 K/mm3 (0.0-0.4); EOSINOPHILS PERCENT AUTO 4.6 % (0.0-6.0); HEMATOCRIT 47.1 % (42.0-52.0); HEMOGLOBIN 16.5 gm/dl (14.0-18.0); IMMATURE GRAN ABSOLUTE AUTO 0.03 K/mm3 (0.00-0.05); IMMATURE GRAN PERCENT AUTO 0.4 % (0.0-0.4); LYMPHOCYTES ABSOLUTE AUTO 1.8 K/mm3 (1.0-4.8); MEAN CORPUSCULAR HEMOGLOBIN 30.8 pg (28.0-32.0); MEAN CORPUSCULAR VOLUME 87.9 fl (83.0-99.0); MONOCYTES ABSOLUTE AUTO 0.6 K/mm3 (0.0-0.8); MONOCYTES PERCENT AUTO 7.3 % (0.0-8.0); NEUTROPHILS ABSOLUTE AUTO 4.8 K/mm3 (1.8-7.7); NEUTROPHILS PERCENT AUTO 62.7 % (41.0-71.0); PLATELET COUNT,PLT 207 K/mm3 (150-400); RED BLOOD CELL COUNT 5.36 M/mm3 (4.52-5.90); WHITE BLOOD CELL COUNT,WBC 7.63 K/mm3 (3.9-11.3)
[2023-06-14 18:47] LABS: A/G RATIO 1.2 (1-2); ALBUMIN 3.8 g/dl (3.4-5.0); ANION GAP 13.9 (5-15); BILIRUBIN TOTAL 1.5 mg/dL (0.2-1.0); CREATININE 1.2 mg/dL (0.7-1.3); EST CRCL DRUG DOSING (CG) 67.59 mL/min; POTASSIUM,K 3.9 mEq/L (3.5-5.1); PROTEIN TOTAL,TP 7.1 g/dl (6.4-8.2)
== END 2023-06-14 19:26 | disposition home or self-care (01) ==
LOC: JD.ED 17:14
DX: R07.89 Other chest pain (principal); Z79.82 Long term (current) use of aspirin
CPT/HCPCS: 36415; 71046; 80053; 84484; 85025; 85379; 93005; 99285; J3490; 93010; 99283